=== PATIENT | male | born 1985 | race Caucasian/White ===

== ENCOUNTER 2019-10-13 18:17 | Emergency (ER) | payer SELFPAY ==
[2019-10-13 18:46] VITALS: BP 186/106; PULSE 82; RESP 14; TEMP 36.6; O2SAT 98; BMI 27.2
--- NOTE | 2019-10-13 18:49 | ECG_ITS ---
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 Measurements Intervals [place] Rate: 74 P: 54 DE: 142 QRS: 32 QRSD: 94 T: 25 QT: 363 QTc: 404 Interpretive Statements SINUS RHYTHM No previous ECG available for comparison Electronically Signed On 10-15-2019 20:44:19 CDT by Hyacinth Wren M.D. [id number]
--- NOTE | 2019-10-13 18:57 | W.ED.GENADLT ---
HPI - General Adult General: Chief complaint: General Medical Stated complaint: high bp Time Seen by Provider: 10/13/19 18:49 Source: patient Mode of arrival: ambulatory Limitations: no limitations History of Present Illness: HPI narrative: 34-year-old male who states he has been checking his blood pressure over the last week and it is been consistently high roughly 150s over 90s. Patient states he has had some slight numbness in his left arm. Denies any chest pain or headache. He states his other PCP is retired and he is not seen his new one in failure. He states he was concerned when his diastolic was over 100. Denies any worsening or improving factors. Associated symptoms: Deny chest pain, dyspnea, nausea, rash or vomiting Review of Systems Const: Denies: fever(s), chills, body aches or change in appetite Eyes: Denies: blurry vision or eye discomfort ENMT: Denies: throat pain or dental pain Card: Denies: chest pain Resp: Denies: dyspnea GI: Denies: abdominal pain, nausea, vomiting or diarrhea : Denies: dysuria Musc: Denies: neck pain or back pain Skin/Breast: Denies: rash Neuro: Reports: numbness in extremities Psych: Denies: depression Jorge/Lymph: Denies: easy bruising All/Imm: Denies: urticaria Physical Exam Const: COMMON NORMALS: no acute distress, patient oriented x3 and healthy appearing HENMT: COMMON NORMALS: normocephalic and atraumatic HEAD & SCALP: normocephalic and atraumatic Eye: COMMON NORMALS: Equal, round and reactive pupils present and EOMs intact bilaterally PUPIL: Yes Equal, round and reactive pupils present Neck/C-Spine: COMMON NORMALS: full ROM and supple Chest: COMMONS NORMALS: normal inspection of the chest and normal palpation of entire chest wall Resp: COMMON NORMALS: normal respiratory effort, No retractions, No use of accessory muscles and clear to auscultation bilaterally AUSCULTATION: clear to auscultation bilaterally Cardio: COMMON NORMALS: regular rate, regular rhythm and No murmurs present (Cardio) RATE: regular rate RHYTHM: regular rhythm GI: COMMON NORMALS: Normal to inspection, nondistended, normoactive bowel sounds present, Soft to palpation, non-tender and no masses PALPATION: Yes Soft to palpation Extremity: COMMON NORMALS: normal to inspection and full ROM Neuro: COMMON NORMALS: patient oriented x3, moves all extremities and no focal motor deficits Psych: COMMON NORMALS: mental status grossly normal, Normal thought process present and cooperative THOUGHT PROCESS: Normal thought process present Skin: COMMON NORMALS: no rashes or lesions noted and no wounds GENERAL SKIN EXAM: no rashes or lesions noted Course Vital Signs: Vital signs: Vital Signs Temperature 97.9 F 10/13/19 18:46 Pulse Rate 82 10/13/19 18:46 Respiratory Rate 14 10/13/19 18:46 Blood Pressure 186/106 10/13/19 18:46 Pulse Oximetry 98 10/13/19 18:46 MDM - General Adult MDM Narrative: Medical decision making narrative: Jerry presents here with high blood pressure. He is asymptomatic and EKG here is negative. Patient given HCTZ here and will start him on a prescription for that as well. He is to follow-up with his PCP in 3 to 5 days and continue to take blood pressure logs. He is return if worsening. He understands and agrees to plan. EKG Data^: EKG 1: Attestation: I personally reviewed and interpreted this EKG as follows: EKG interpretation date: 10/13/19 EKG interpretation time: 19:08 Interpretation: nsr hr [address] or t wave abnormalities qrs 94 qtc 390 Discharge Plan Discharge Patient Disposition: Home Clinical Impression: Hypertension Qualifiers: Hypertension type: essential hypertension Qualified Code(s): I10 - Essential (primary) hypertension Condition: Stable Prescriptions: New hydrochlorothiazide 25 mg tablet 25 mg PO BID Qty: 60 RF: 0 Discharge Orders: Discharge Order (Routine); Ordered 10/13/19 Ordered By: Halina Perez Referrals: Pb Ortega FNP-C [Primary Care Provider] - Discharge Diet: Advance as tolerated Discharge Activity: Resume usual activity Patient Instructions: Hypertension (ED) Coding Level of Care Code ED Venetian Blind Washer for Chg Fwd Exam Comprehensive
[2019-10-13] MEDS: hydroCHLOROthiazide 25 mg Tablet PO (19:29)
[2019-10-13 19:37] VITALS: BP 155/95; PULSE 74; RESP 16; TEMP 37.1; O2SAT 99
== END 2019-10-13 19:38 | disposition home or self-care (01) ==
PROVIDERS: Emergency Provider Emergency Medicine; PCP Nurse Practitioner
DX: I10 Essential (primary) hypertension (principal)
CPT/HCPCS: 12345; 93005; 99281; 99283

== ENCOUNTER → 2019-11-16 16:39 | Outpatient (BNVA) | payer SELFPAY | PROVIDERS: Visit Provider Nurse Practitioner Family | DX: R07.9 Chest pain, unspecified (principal); R20.0 Anesthesia of skin; I10 Essential (primary) hypertension | CPT/HCPCS: 80053; 80061; 82607; 83735; 84443; 85025 ==

== ENCOUNTER 2019-12-09 12:45 | Outpatient (CLI) | payer SELFPAY ==
[2019-12-01 12:04] VITALS: BMI 27.2
--- NOTE | 2019-12-01 12:17 | PC.NURSE ---
pt arrived for test. when asked about his bp meds he stated he had taken them this morning. he stated he wasn't given instruction to stop them for 48 hrs. nurse gave him a new instruction page and extension to reschedule.
--- NOTE | 2019-12-09 13:03 | ECG_ITS ---
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 Interpretive Statements NAME OF STUDY: TREADMILL STRESS TEST INDICATION: Chest Pain PROCEDURE: At the baseline, the patient's blood pressure was 123/79 with a heart rate of 90. The baseline electrocardiogram showed normal sinus rhythm with normal ST-Ts.. The patient exercised for 12 minutes and 44 seconds on a standard Bradley protocol. Patient attained a maximum heart rate of 169 beats per minute(91% of the maximum predicted heart rate) with a blood pressure at the peak exercise of 187/96 mm Hg. The EKG at the peak exercise revealed no significant ST-T changes. Patient did not have any chest pain or any significant cardiac arrhythmias with the exercise During the recovery phase, there were no new changes. Blood pressure at the end of the recovery phase was 110/83 mm Hg with a heart rate of 102 per minute. CONCLUSION: 1. Normal EKG response to treadmill exercise 2. No exercise-induced chest pain or cardiac arrhythmia 3. Good exercise tolerance, attained a maximum of 13.5 METs Electronically Signed On 12-10-2019 20:58:57 CDT by Angela Cuellar M.D. [id number]
[2019-12-09 13:05] VITALS: BMI 27.2
[2019-12-09 15:44] VITALS: BP 110/83; PULSE 102
== END 2019-12-09 12:46 | disposition home or self-care (01) ==
LOC: CDL 13:02
PROVIDERS: PCP Nurse Practitioner Family; Visit Provider Nurse Practitioner Family
DX: R07.9 Chest pain, unspecified (principal)
CPT/HCPCS: 93017

== ENCOUNTER → 2020-03-02 16:14 | Outpatient (BNVA) | payer SELFPAY | PROVIDERS: PCP Nurse Practitioner Family; Visit Provider Nurse Practitioner Family | DX: I10 Essential (primary) hypertension (principal) | CPT/HCPCS: 80053; 80061; 82607; 85025 ==

== ENCOUNTER 2021-01-14 12:58 | Emergency (ER) | payer SELFPAY ==
[2021-01-14 13:56] VITALS: BP 174/92; PULSE 80; RESP 16; TEMP 36.7; O2SAT 98; BMI 27.1
--- NOTE | 2021-01-14 14:04 | W.ED.WOUNDLC ---
HPI - Wound/Laceration General: Chief Complaint: Wound/Laceration Stated Complaint: FINGER LAC Time Seen by Provider: 01/14/21 14:04 Source: patient Mode of arrival: ambulatory Limitations: no limitations History of Present Illness: HPI narrative: 35-year-old male presents to the ER today for a right index finger laceration. Patient reports he was using a billet grinder at home and got his finger stuck in the billet grinder belt. Patient reports he immediately noticed it had removed his fingernail and the tip of his finger so he placed pressure directly on finger and came to the ER. Patient reports pain in the distal tip along with numbness and tingling. Bleeding is controlled at this time. Patient reports last tetanus shot is unknown. Patient reports he is able to bend the finger but there is pain. Onset (ago): minute(s) Extremity Location: Right: hand (Right index finger distal tip) Place: home Patient tetanus UTD: No Context: accidental Associated symptoms: Reports numbness and pain; Denies chills, fever(s), nausea or vomiting Review of Systems General: Reports: 10 or more systems reviewed and unremarkable except in HPI and below Const: Denies: fever(s), chills or body aches ENMT: Denies: throat pain, nasal discharge or nasal congestion Card: Denies: chest pain or palpitations Resp: Denies: dyspnea, productive cough or wheezing GI: Denies: abdominal pain, nausea, vomiting, diarrhea or constipation Musc: Reports: extremity pain; Denies: neck pain, back pain or extremity swelling Skin/Breast: Reports: other (Avulsion laceration to the right index finger); Denies: rash Neuro: Denies: headache(s) Psych: Denies: anxiety or depression PFSH ED PFSH: Medical History HTN (hypertension) Surgical History No pertinent past surgical history Family History Father Hypertension Social History Smoking and tobacco status: current every day smoker cigarettes Packs smoked per day: 0.5 Years cigarettes smoked: 5 Second hand smoke exposure: Yes Alcohol intake: never Caregiver/support person: Yes Lives independently: Yes Household members: significant other Marital status: Single service: No Current occupational status: employed Current occupation: [employer] History of recent travel: No Current gender identity: Male Physical Exam Const: COMMON NORMALS: no acute distress, average body habitus and patient oriented x3 GENERAL APPEARANCE: cooperative and comfortable HENMT: COMMON NORMALS: normocephalic, external ears normal and Normal external nose present HEAD & SCALP: normocephalic NOSE: Normal external nose present EXTERNAL EAR: Yes external ears normal Neck/C-Spine: COMMON NORMALS: full ROM Resp: COMMON NORMALS: normal respiratory effort EFFORT & INSPECTION: Yes able to speak in complete sentences Cardio: COMMON NORMALS: regular rate and regular rhythm RATE: regular rate RHYTHM: regular rhythm Extremity: GENERAL: Yes normal exam except as noted RIGHT UPPER EXTREMITY: Yes hand & digits (Right index finger avulsion laceration, nail completely gone.) OTHER: Patient has an avulsion laceration to the distal tip of the right index finger. The nail has been completely removed from the tip of the finger. All skin has also been removed on the dorsal aspect of the finger. There is no remaining tissue to close at this time. Bleeding is all controlled currently. Neuro: COMMON NORMALS: patient oriented x3 and moves all extremities Psych: COMMON NORMALS: mental status grossly normal, Normal thought process present, cooperative, normal affect and speech normal SPEECH: Yes normal speech THOUGHT PROCESS: Normal thought process present Skin: OTHER: See extremity for description of laceration. Patient's pulses are intact, there is decreased sensation to the tip of the right index finger Course ED course: Patient presents to the ER today with a right index finger laceration. Patient took off the tip of the right index finger involving the nail with a billet grinder belt at home. Will get x-ray to determine if there is a fracture. We will also update tetanus status at this time and wrap laceration as there is nothing to close today. Vital Signs: Vital signs: Vital Signs Temperature 98.0 F 01/14/21 13:56 Pulse Rate 80 01/14/21 13:56 Respiratory Rate 16 01/14/21 13:56 Blood Pressure 174/92 01/14/21 13:56 Pulse Oximetry 98 01/14/21 13:56 MDM - Wound/Laceration MDM Narrative: Medical decision making narrative: 35-year-old male presents to the ER today for right index finger laceration that occurred while using a billet grinder at home. Patient has no remaining tissue to close as it took off the skin and underlying tissue of the distal tip of the right index finger. Patient's nail is completely gone at this time. Bleeding is well controlled. X-ray does indicate a mild small fracture of the distal tip of the phalanx of the right index finger. We will go ahead and treat with Augmentin given this is an open fracture. We will also update tetanus status. Wound was wrapped with Vaseline gauze and a nonstick dressing and a pressure dressing was applied. Wound care was thoroughly discussed with patient. He will follow-up with PCP in 2 to 3 days for evaluation and possible wound care referral if needed. Alternate Tylenol and Motrin for pain. Return to the ER with any new or worsening symptoms. Patient verbalized understanding and is in agreement with this treatment plan. Imaging Data^: Xray Ortho: Radiologist's impression: [address] [address] XRay Report Signed Patient: Jerry Salazar Unit #: [id number] : 1985 Age/Sex: 35 / M ADM Date: 01/14/21 Loc: ER Room/Bed: Attending Dr: Ordering Provider/Ordering MD: Giulia Castano Date of Service: 01/14/21 Procedure(s): XR finger RT min 2V [id number] Accession Number(s): [id number] Report Number: [id number] PROCEDURE INFORMATION: Exam: XR Right Finger(s) Exam date and time: 01/14/2021 2:06 PM Age: 35 years old Clinical indication: Injury or trauma; Other: Using a grinding tool; Bleeding/hemorrhage; Right index finger; Additional info: Right ring finger injury TECHNIQUE: Imaging protocol: XR Right fingers. Views: Minimum 2 views. Total images: 3 COMPARISON: No relevant prior studies available. FINDINGS: Bones/joints: Partial amputation and small avulsion fracture tuft terminal phalanx 2nd digit right hand. Potential open fracture. Soft tissues: Nailbed injury. No visible radiopaque foreign body or soft tissue emphysema. XR/XR finger RT min 2V [id number] IMPRESSION: 1. Partial amputation and small avulsion fracture tuft terminal phalanx 2nd digit right hand. Potential open fracture. 2. Nailbed injury. Radiation Dose CTDIVOL = (mGy): DLP = (mGy-cm) Dictated By: Ortega Sparrow Signed By: Ortega Sparrow Signed Date/Time: 01/14/21 1525 DD/ 1406 Discharge Plan Discharge Patient Disposition: Home Clinical Impression: Laceration of right index finger with damage to nail Qualifiers: Encounter type: initial encounter Foreign body presence: without foreign body Qualified Code(s): S61.310A - Laceration without foreign body of right index finger with damage to nail, initial encounter Open fracture of distal phalanx of right index finger Qualifiers: Encounter type: initial encounter Fracture alignment: nondisplaced Qualified Code(s): S62.660B - Nondisplaced fracture of distal phalanx of right index finger, initial encounter for open fracture Condition: Stable Prescriptions: New Augmentin 875-125 mg tablet 1 tab PO BID 10 Days Qty: 20 RF: 0 No Action hydrochlorothiazide 25 mg tablet 25 mg PO BID Qty: 180 RF: 3 lisinopril 5 mg tablet 5 mg PO DAILY Qty: 90 RF: 3 atorvastatin 40 mg tablet 40 mg PO DAILY Qty: 90 RF: 3 Discharge Orders: Discharge ED (Routine); Ordered 01/14/21 Ordered By: Giulia Castano Referrals: Dee Collins FNP [Primary Care Provider] - Discharge Diet: Usual diet Discharge Activity: Resume usual activity Patient Instructions: Acute Wounds (ED), Opioid Safety Activity Restrictions/Additional Instructions: Take Augmentin as prescribed. Leave current dressing on for 48 hours before removing. Clean wound once daily with warm soapy water and apply nonstick dressing. Apply ice to reduce swelling. Alternate Tylenol and Motrin for pain. Follow-up with PCP in 3 days. Return to the ER with any new or worsening symptoms. Coding Level of Care Code ED Environmental Monitoring Specialist for Javed Fwd Exam Comprehensive
[2021-01-14] MEDS: tetanus-dipt-pertussis 0.5 mL SDV IM (15:03)
[2021-01-14 15:42] VITALS: BP 145/88; PULSE 82; RESP 16; O2SAT 98
--- NOTE | 2021-01-15 12:05 | PC.NURSE ---
Pt called reguesting pain meds along with antibiotic. Verbal order for Toradol 10 mg po TID x 4 days Stop Ibuprofen. Can continue to take Tylenol.
== END 2021-01-14 15:23 | disposition home or self-care (01) ==
PROVIDERS: Emergency Provider Physician Assistant; PCP Nurse Practitioner Family
DX: S61.310A Laceration without foreign body of right index finger with damage to nail, initial encounter (principal); S62.660B Nondisplaced fracture of distal phalanx of right index finger, initial encounter for open fracture; I10 Essential (primary) hypertension; F17.210 Nicotine dependence, cigarettes, uncomplicated; W31.89XA Contact with other specified machinery, initial encounter; Z23 Encounter for immunization
CPT/HCPCS: 73140; 90471; 90715; 99283

== ENCOUNTER 2021-01-25 14:23 | Outpatient (CLI) | payer SELFPAY | END 2021-01-25 14:24 | disposition home or self-care (01) | LOC: WOUND 14:23 | PROVIDERS: PCP Nurse Practitioner Family; Visit Provider Emergency Medicine | DX: S61.320A Laceration with foreign body of right index finger with damage to nail, initial encounter (principal); X58.XXXA Exposure to other specified factors, initial encounter; F17.210 Nicotine dependence, cigarettes, uncomplicated | CPT/HCPCS: 97597; G0463 ==

== ENCOUNTER → 2021-04-30 16:16 | Outpatient (BNVA) | payer SELFPAY | PROVIDERS: PCP Nurse Practitioner Family; Visit Provider Nurse Practitioner Family | DX: F52.4 Premature ejaculation (principal); I10 Essential (primary) hypertension | CPT/HCPCS: 80053; 80061; 82607; 83735; 84403; 84439; 84443; 85025 ==

== ENCOUNTER 2021-08-23 17:41 | Emergency (ER) | payer SELFPAY ==
[2021-08-23 17:44] VITALS: BP 157/100; PULSE 74; RESP 16; TEMP 36.5; O2SAT 99
--- NOTE | 2021-08-23 18:38 | ED_ITS ---
HPI - Headache General: Chief Complaint: Headache Stated Complaint: n/v Time Seen by Provider: 08/23/21 18:37 History of Present Illness: 36-year-old male patient comes in today for com plaints of headache and some nausea and vomiting this morning. Since this afternoon patient has been able to tolerate some oral fluids, and drinking some oral electrolytes. Patient does have a history of heat exhaustion and thinks this is similar to when he has had it before. Patient appears nontoxic. Patient appears in no pain. Associated symptoms: Reports nausea and vomiting; Deny chest pain Review of Systems General: Reports: 10 or more systems reviewed and unremarkable except in HPI and below Card: Denies: chest pain Resp: Denies: dyspnea GI: Reports: nausea and vomiting; Denies: diarrhea PFSH ED PFSH: Medical History HTN (hypertension) Surgical History No pertinent past surgical history Family History Father Hypertension Social History Smoking and tobacco status: current every day smoker cigarettes Packs smoked per day: 0.5 Years cigarettes smoked: 5 Second hand smoke exposure: Yes Alcohol intake: never Caregiver/support person: Yes Lives independently: Yes Household members: significant other Marital status: Single service: No Current occupational status: employed Current occupation: [employer] History of recent travel: No Current gender identity: Male Physical Exam Const: COMMON NORMALS: alert HENMT: HEAD & SCALP: normal to inspection MOUTH: Normal oral and palatal mucosa present Neck/C-Spine: COMMON NORMALS: full ROM Resp: COMMON NORMALS: normal respiratory effort Cardio: COMMON NORMALS: regular rate and regular rhythm RATE: regular rate RHYTHM: regular rhythm GI: COMMON NORMALS: Soft to palpation and non-tender PALPATION: Yes Soft to palpation Extremity: COMMON NORMALS: normal to inspection Neuro: SENSORIUM/ORIENTATION: Yes alert Course Vital Signs: Vital signs: Vital Signs Temperature 97.7 F 08/23/21 17:44 Pulse Rate 86 08/23/21 18:48 Respiratory Rate 16 08/23/21 17:44 Blood Pressure 144/94 08/23/21 18:48 Pulse Oximetry 100 08/23/21 18:48 MDM - Headache Medical Decision Making 36-year-old male patient comes in today for complaints of headache with some nausea and vomiting starting this morning. Patient reports late in the morning early afternoon he started using electrolyte solution propel and Gatorade along with water and started to be holding down some more fluids. Patient admits to being out in the sun for the past few days becoming overheated and sweating. Patient does have a history of heat exhaustion. On exam patient is alert oriented and acting appropriate. Vital signs are normal except for some mild elevation of blood pressure at 157/100. Oral mucosa is moist. Skin is warm and dry. Differential diagnosis includes heat exhaustion, dehydration, adverse drug effect, hypertension. Patient was treated with 1 L of IV fluids, Zofran, and 50 mg of Toradol. Laboratory values noted a unremarkable blood count, CMP did note some decrease in sodium at 124 and potassium at 3.2. Creatinine was 0.7. Patient appears to be dehydrated with some mild hyponatremia. After treatment with fluids patient did feel better. Reviewed exam with patient with recommendations for continued electrolyte solution and fluids. Patient was put off work until Friday so he can replace fluids and return to normal condition. Patient stated understanding agreed to plan. Lab Data : 08/23/21 18:57 08/23/21 18:57 Laboratory Results WBC 10.5 10^3/uL (4.0-10.0) H 08/23/21 18:57 RBC 5.68 10^6/uL (4.1-5.3) H 08/23/21 18:57 Hgb 16.1 g/dL (11.7-16.6) 08/23/21 18:57 Hct 46.4 % (42.0-52.0) 08/23/21 18:57 MCV 81.7 fl (80-94) 08/23/21 18:57 MCH 28.3 pg (28.0-34.0) 08/23/21 18:57 MCHC 34.7 g/dL (30.0-36.0) 08/23/21 18:57 RDW 11.9 % (12.1-15.1) L 08/23/21 18:57 Plt Count 273 10^3/cmm (130-400) 08/23/21 18:57 MPV 9.4 fL (7.4-10.4) 08/23/21 18:57 Neut % (Auto) 70.5 % 08/23/21 18:57 Lymph % (Auto) 22.3 % 08/23/21 18:57 [place] % (Auto) 5.2 % 08/23/21 18:57 Eos % (Auto) 1.1 % 08/23/21 18:57 Baso % (Auto) 0.5 % 08/23/21 18:57 Neut # (Auto) 7.40 10^3/uL (1.8-7.7) 08/23/21 18:57 Lymph # (Auto) 2.3 10^3/uL (0.8-4.8) 08/23/21 18:57 [place] # (Auto) 0.5 10^3/uL (0.2-0.9) 08/23/21 18:57 Eos # (Auto) 0.1 10^3/uL (0.0-0.8) 08/23/21 18:57 Baso # (Auto) 0.1 10^3/uL (0.0-0.1) 08/23/21 18:57 Nucleated RBC % (auto) 0 % 08/23/21 18:57 Nucleated RBCs # 0.0 /100WBC 08/23/21 18:57 Sodium 124 mmol/L (136-145) L 08/23/21 18:57 Potassium 3.2 mmol/L (3.5-5.1) L 08/23/21 18:57 Chloride 82 mmol/L (98-107) L 08/23/21 18:57 Carbon Dioxide 28 mmol/L (22-29) 08/23/21 18:57 Anion Gap 17.2 (5-19) 08/23/21 18:57 BUN 7 mg/dL (6-20) 08/23/21 18:57 Creatinine 0.7 mg/dL (0.7-1.2) 08/23/21 18:57 GFR Calculation 126.9 mL/min (90-130) 08/23/21 18:57 Glucose 101 mg/dL (65-115) 08/23/21 18:57 Calculated Osmolality 256 mOsm/kg (285-295) L 08/23/21 18:57 Calcium 9.6 mg/dL (8.5-10.5) 08/23/21 18:57 Total Bilirubin 0.4 mg/dL (0.15-1.2) 08/23/21 18:57 AST 19 U/L (0-40) 08/23/21 18:57 ALT 21 U/L (0-41) 08/23/21 18:57 Alkaline Phosphatase 86 IU/L (40-130) 08/23/21 18:57 Creatine Kinase 156 U/L (39-308) 08/23/21 18:57 Total Protein 7.4 g/dL (6.6-8.7) 08/23/21 18:57 Albumin 4.8 g/dL (3.5-5.2) 08/23/21 18:57 Globulin 2.6 g/dL (1.3-4.6) 08/23/21 18:57 Lipase 13 U/L (13-60) 08/23/21 18:57 Urine Color Yellow (Yellow) 08/23/21 18:46 Urine Appearance Clear (CLEAR) 08/23/21 18:46 Urine pH 7 (5-7) 08/23/21 18:46 Ur Specific [place] 1.005 (1.005-1.030) 08/23/21 18:46 Urine Protein Neg (Negative) 08/23/21 18:46 Urine Glucose (UA) Norm (Normal) 08/23/21 18:46 Urine Ketones Negative (Negative) 08/23/21 18:46 Urine Blood Neg (Negative) 08/23/21 18:46 Urine Nitrate Negative (Negative) 08/23/21 18:46 Urine Bilirubin Neg (Negative) 08/23/21 18:46 Urine Urobilinogen Norm mg/dL (Negative) 08/23/21 18:46 Ur Leukocyte Esterase Negative (Negative) 08/23/21 18:46 Discharge Plan Discharge Patient Disposition: Home Clinical Impression: Dehydration with hyponatremia Condition: Stable Prescriptions: No Action hydrochlorothiazide 25 mg tablet See Rx Instructions PO BID Qty: 135 3RF Rx Instructions: 1 tab AM, 1/2 tab PM PO twice a day; lisinopril 10 mg tablet 10 mg PO DAILY Qty: 90 3RF atorvastatin 40 mg tablet 40 mg PO DAILY Qty: 90 3RF sildenafil [Viagra] 50 mg tablet 50 mg PO DAILY PRN (Reason: sexual activity) Qty: 10 2RF Rx Instructions: administer 30 minutes to 4 hours before activity Discharge Orders: Discharge ED (Routine); Ordered 08/23/21 Ordered By: Matti Mckeon Referrals: Dee Collins FNP [Primary Care Provider] - Discharge Diet: Usual diet Discharge Activity: Increase activity as tolerated Patient Instructions: Dehydration (ED) Activity Restrictions/Additional Instructions: When sweating a lot in the heat it is very important to replace your electrolytes with solution such as Gatorade, or Pedialyte. Some medications such as diuretics like hydrochlorothiazide may increase your likelihood for dehy dration. I would recommend diluting Gatorade in half with water and drinking that to help prevent dehydration and the loss of electrolytes. Follow-up with primary care in 1 week for recheck of labs. Return to ER for worsening symptoms or new concerns. Stand Alone Forms: Work/School Release Coding Level of Care Code ED Scheduling Manager for Javed Fwd Exam Detailed
[2021-08-23 18:48] VITALS: BP 144/94; PULSE 86; O2SAT 100
[2021-08-23 18:55] LABS: Add Urine Microscopic? NO; Charge for UA Resulting for Rev
[2021-08-23 18:57] LABS: Bilirubin Urine Neg (Negative); Blood Urine Neg (Negative); Glucose Urine UA Norm (Normal); Ketones Urine Negative (Negative); Leukocyte Esterase Urine Negative (Negative); Nitrate Urine Negative (Negative); Protein Urine Neg (Negative); Specific Gravity, Urine 1.005 (1.005-1.030); Urine Appearance Clear (CLEAR); Urine Color Yellow (Yellow); Urobilinogen Urine Norm (Negative); pH Urine 7 (5-7)
[2021-08-23 19:02] LABS: Basophils # 0.1 10^3/uL (0.0-0.1); Basophils % 0.5 %; Eosinophils # 0.1 10^3/uL (0.0-0.8); Eosinophils % 1.1 %; Hematocrit 46.4 % (42.0-52.0); Hemoglobin 16.1 g/dL (11.7-16.6); Lymphocytes # 2.3 10^3/uL (0.8-4.8); Lymphocytes % 22.3 %; Mean Corpuscular HGB Conc 34.7 g/dL (30.0-36.0); Mean Corpuscular Hemoglobin 28.3 pg (28.0-34.0); Mean Corpuscular Volume 81.7 fl (80-94); Mean Platelet Volume 9.4 fL (7.4-10.4); Monocytes # 0.5 10^3/uL (0.2-0.9); Monocytes % 5.2 %; Neutrophils % 70.5 %; Nucleated Red Blood Cells % 0 %; Platelet Count 273 10^3/cmm (130-400); Red Blood Count 5.68 10^6/uL (4.1-5.3); Red Cell Distribution Width 11.9 % (12.1-15.1); White Blood Count 10.5 10^3/uL (4.0-10.0)
[2021-08-23] MEDS: ketorolac 30 mg/mL INJ 15 MG IVP (19:04)
[2021-08-23] MEDS: sodium chloride 0.9% 1,000 ML 999 ML IV (19:04)
[2021-08-23] MEDS: ondansetron 2 mg/ML SDV 2 mL 4 MG IVP (19:04)
[2021-08-23 19:19] LABS: Alanine Aminotransferase 21 U/L (0-41); Albumin Level 4.8 g/dL (3.5-5.2); Alkaline Phosphatase 86 IU/L (40-130); Anion Gap 17.2 (5-19); Aspartate Amino Transferase 19 U/L (0-40); Blood Urea Nitrogen 7 mg/dL (6-20); Calcium 9.6 mg/dL (8.5-10.5); Carbon Dioxide 28 mmol/L (22-29); Creatine Phosphokinase 156 U/L (39-308); Globulin 2.6 g/dL (1.3-4.6); Glomerular Filtration Rate 126.9 mL/min (90-130); Glucose 101 mg/dL (65-115); Lipase 13 U/L (13-60); Total Bilirubin 0.4 mg/dL (0.15-1.2); Total Protein 7.4 g/dL (6.6-8.7)
[2021-08-23 19:22] LABS: Chloride 82 mmol/L (98-107); Osmolality Calculated 256 mOsm/kg (285-295); Potassium 3.2 mmol/L (3.5-5.1); Sodium 124 mmol/L (136-145)
[2021-08-23 19:55] VITALS: BP 118/84; PULSE 72; RESP 18; O2SAT 99
== END 2021-08-23 19:45 | disposition home or self-care (01) ==
PROVIDERS: Emergency Provider Nurse Practitioner Family; PCP Nurse Practitioner Family
DX: E86.0 Dehydration (principal); E87.1 Hypo-osmolality and hyponatremia; I10 Essential (primary) hypertension
CPT/HCPCS: 80053; 81003; 82550; 83690; 85025; 96374; 96375; 99284; J1885; J2405; J7030

== ENCOUNTER → 2021-12-20 12:30 | Outpatient (BNVA) | payer BC, SELFPAY | PROVIDERS: PCP Nurse Practitioner Family; Visit Provider Nurse Practitioner Family | DX: I10 Essential (primary) hypertension (principal); M54.50 Low back pain, unspecified; G89.29 Other chronic pain; E78.5 Hyperlipidemia, unspecified; F52.4 Premature ejaculation; M54.6 Pain in thoracic spine; M54.2 Cervicalgia | CPT/HCPCS: 80053; 80061; 84443; 85025 ==

== ENCOUNTER → 2022-05-29 16:30 | Outpatient (BNVA) | payer BC, SELFPAY | PROVIDERS: PCP Nurse Practitioner Family; Visit Provider Nurse Practitioner Family | DX: I10 Essential (primary) hypertension (principal) | CPT/HCPCS: 80053; 80061; 82607; 83721; 84443; 85025 ==

== ENCOUNTER 2022-06-06 14:51 | Outpatient (CLI) | payer BC, SELFPAY ==
--- NOTE | 2022-06-06 15:04 | XRR_ITS ---
PROCEDURE INFORMATION: Exam: XR Cervical Spine Exam date and time: 06/06/2022 3:10 PM Age: 37 years old Clinical indication: Pain; Cervicalgia; Additional info: M54.2 - cervicalgia TECHNIQUE: Imaging protocol: Radiologic exam of the cervical spine. Views: 2 or 3 views. COMPARISON: No relevant prior studies available. FINDINGS: Bones/joints: Normal alignment. No acute fracture or traumatic spondyloliethesis. Mild degenerative disc changes C3-C4 through C6-C7 with mild posterior degenerative disc space narrowing and end plate osteophytic lipping. Mild degenerative facet arthrosis C7-T1. Osseous structures otherwise unremarkable. Soft tissues: Unremarkable. XR/XR cervical spine 3V* [id number] IMPRESSION: No acute findings.
--- NOTE | 2022-06-06 15:04 | XRR_ITS ---
PROCEDURE INFORMATION: Exam: XR Thoracic Spine Exam date and time: 06/06/2022 3:10 PM Age: 37 years old Clinical indication: Pain in thoracic spine; Additional info: M54.6 - pain in thoracic spine TECHNIQUE: Imaging protocol: Radiologic exam of the thoracic spine. Views: 3 views. COMPARISON: No relevant prior studies available. FINDINGS: Bones/joints: There is slight kyphoscoliosis convex to the patient's right. Mild degenerative disc changes are present within the mid-lower thoracic spine with mild disc space narrowing. There are no fractures or spondylolisthesis. Pedicles are intact. Soft tissues: Paraspinal soft tissues are unremarkable. XR/XR thoracic spine 3V* [id number] IMPRESSION: No acute bony abnormalities.
--- NOTE | 2022-06-06 15:04 | XRR_ITS ---
PROCEDURE INFORMATION: Exam: XR Lumbosacral Spine Exam date and time: 06/06/2022 3:10 PM Age: 37 years old Clinical indication: Low back pain; Additional info: M54.50 - low back pain, unspecified TECHNIQUE: Imaging protocol: Radiologic exam of the lumbosacral spine. Views: 2 or 3 views. COMPARISON: No relevant prior studies available. FINDINGS: Bones/joints: A is interest mild degenerative disc changes are present L1-L2 and L5-S1 with some disc space narrowing and endplate sclerosis. Remaining disc heights are maintained. No fracture, spondylolysis or spondylolisthesis. Pedicles are intact. Soft tissues: Unremarkable. XR/XR lumbar spine 2-3V* [id number] IMPRESSION: Mild degenerative changes L1-L2 and L5-S1. No acute abnormalities.
== END 2022-06-06 14:52 | disposition home or self-care (01) ==
LOC: RAD 15:00
PROVIDERS: PCP Nurse Practitioner Family; Visit Provider Nurse Practitioner Family
DX: G89.29 Other chronic pain (principal); M54.50 Low back pain, unspecified; M54.6 Pain in thoracic spine; M54.2 Cervicalgia
CPT/HCPCS: 72040; 72072; 72100

== ENCOUNTER 2022-06-22 10:26 | Outpatient (CLI) | payer BC, SELFPAY ==
[2022-06-22] MEDS: iohexol 350 mg/mL 500 mL Btl (per mL) IV (11:41)
[2022-06-22] MEDS: iohexol 350 mg/mL 500 mL Btl (per mL) PO (11:41)
--- NOTE | 2022-06-22 12:00 | CT_ITS ---
WS: [id number] CT ABDOMEN AND PELVIS WITH CONTRAST HISTORY: R10.31 - Right lower quadrant pain TECHNIQUE: Imaging performed of the abdomen and pelvis with IV contrast. Single phase imaging of the abdomen. Coronal and sagittal reformats are submitted. All CT scans at [facility] use at [address] one of these dose optimization techniques: automated exposure control; mA and/or kV adjustment per patient size (includes targeted exams where dose is matched to clinical indication); or iterative re construction. IV CONTRAST: Omnipaque 350; 100 mL IV. Oral contrast: Yes. DLP: 457.23 mGy.cm COMPARISON: None available. Lower thorax: Lung bases are clear. Heart is normal size. Small hiatal hernia. Liver/biliary system: Normal size with no intrahepatic dilatation. Gallbladder: Normal. No gallstones or wall thickening. No pericholecystic fluid. Pancreas: Normal size pancreas and pancreatic duct. No adjacent inflammation. Spleen: Normal size spleen. No mass or infarct. Adrenal glands: Normal. Right kidney: Normal. Left kidney: Normal. Aorta: Normal. Lymphadenopathy: None. Free fluid: None. GI tract: Stomach is well-distended with contrast. There is mild wall thickening of the stomach. No s mall bowel obstruction. There is additional very mild wall thickening involving portions of colon, gr eatest involving the descending and sigmoid colon and the cecum. There are a few scattered sigmoid di verticula. The appendix is normal. Abdominal wall: Fat containing umbilical hernia. Pelvis: No free fluid or adenopathy within the pelvis. Minimally distended urinary bladder. There is mild diffuse wall thickening which is probably related to only partial distention. Bones: Unremarkable. CT/CT abdomen pelvis w con* [id number] IMPRESSION: 1. No adenopathy or ascites. 2. Very mild wall thickening of the stomach and distal colon. Consider gastrit is and mild colitis. The distal colonic findings may be in part be related to o nly partial distention with oral contrast. Mild changes of inflammatory bowel d isease are also possibility. 3. No appendicitis. 4. Small hiatal hernia. 5. A few scattered distal colonic diverticula with no acute diverticulitis.
== END 2022-06-22 10:27 | disposition home or self-care (01) ==
PROVIDERS: PCP Nurse Practitioner Family; Visit Provider Nurse Practitioner Family
DX: R10.31 Right lower quadrant pain (principal); K44.9 Diaphragmatic hernia without obstruction or gangrene; K57.30 Diverticulosis of large intestine without perforation or abscess without bleeding
CPT/HCPCS: 74177; Q9967

== ENCOUNTER → 2022-11-27 08:46 | Outpatient (BNVA) | payer BC, SELFPAY | PROVIDERS: PCP Nurse Practitioner Family; Visit Provider Nurse Practitioner Family | DX: I10 Essential (primary) hypertension (principal); N52.9 Male erectile dysfunction, unspecified | CPT/HCPCS: 80053; 80061; 84443; 85025 ==

== ENCOUNTER → 2023-04-10 12:01 | Outpatient (BNVA) | payer BC, SELFPAY | PROVIDERS: PCP Nurse Practitioner Family; Visit Provider Nurse Practitioner Family | DX: I10 Essential (primary) hypertension (principal) | CPT/HCPCS: 80053; 80061; 84443; 85025 ==

== ENCOUNTER 2023-04-30 16:50 | Outpatient (CLI) | payer BC, SELFPAY ==
--- NOTE | 2023-04-30 16:58 | XRR_ITS ---
PROCEDURE INFORMATION: Exam: XR Thoracic Spine Exam date and time: 04/30/2023 5:02 PM Age: 37 years old Clinical indication: Pain in thoracic spine; Additional info: M54.50 - low back pain, unspecified TECHNIQUE: Imaging protocol: Radiologic exam of the thoracic spine. Views: 3 views. COMPARISON: CR XR thoracic spine 3V* [id number] 06/06/2022 3:10 PM FINDINGS: Bones/joints: Thoracic vertebral body heights appear maintained as do disc spaces. AP view demonstrates slight thoracic dextroscoliosis. Lateral view demonstrates slight thoracic kyphosis. No fracture or compression deformity. No acute osseous abnormality. No significant change with prior exam. Soft tissues: No significant focal soft tissue abnormality. XR/XR thoracic spine 3V* [id number] IMPRESSION: Slight kyphoscoliosis. No acute findings.
--- NOTE | 2023-04-30 16:58 | XRR_ITS ---
PROCEDURE INFORMATION: Exam: XR Cervical Spine Exam date and time: 04/30/2023 5:02 PM Age: 37 years old Clinical indication: Pain; Cervicalgia; Additional info: M54.2 - cervicalgia TECHNIQUE: Imaging protocol: Radiologic exam of the cervical spine. Views: 2 or 3 views. COMPARISON: CR XR cervical spine 3V* [id number] 06/06/2022 3:10 PM FINDINGS: Bones/joints: Cervical vertebral body heights appear maintained, as does alignment. Slight disc space narrowing C5-C6 level. No fracture or compression deformity. No acute osseous abnormality. No significant change with prior exam. Soft tissues: No significant soft tissue abnormality. XR/XR cervical spine 3V* [id number] IMPRESSION: Mild spondylotic change, without acute findings.
--- NOTE | 2023-04-30 16:58 | XRR_ITS ---
PROCEDURE INFORMATION: Exam: XR Lumbosacral Spine Exam date and time: 04/30/2023 5:02 PM Age: 37 years old Clinical indication: Low back pain; Additional info: M54.50 - low back pain, unspecified TECHNIQUE: Imaging protocol: Radiologic exam of the lumbosacral spine. Views: 2 or 3 views. COMPARISON: CR XR lumbar spine 2-3V* [id number] 06/06/2022 3:10 PM FINDINGS: Bones/joints: Lumbar vertebral body heights appear maintained, as does alignment. Mild degenerative change L1-L2, as noted with prior exam, with mild disc space narrowing, mild endplate sclerosis, and small amount of vertebral marginal spur formation. Disc spaces otherwise appear maintained. No fracture or compression deformity. No significant change with prior exam. Sacrum and sacroiliac joints appear unremarkable. Soft tissues: No significant soft tissue abnormality. XR/XR lumbar spine 2-3V* [id number] IMPRESSION: Mild degenerative change L1-L2. No acute findings.
== END 2023-04-30 16:51 | disposition home or self-care (01) ==
LOC: RAD 16:53
PROVIDERS: PCP Nurse Practitioner Family; Visit Provider Nurse Practitioner Family
DX: M47.812 Spondylosis without myelopathy or radiculopathy, cervical region (principal); G89.29 Other chronic pain; M47.816 Spondylosis without myelopathy or radiculopathy, lumbar region; M41.9 Scoliosis, unspecified
CPT/HCPCS: 72040; 72072; 72100

== ENCOUNTER → 2023-05-06 15:28 | Outpatient (BNVA) | payer BC, SELFPAY | PROVIDERS: PCP Nurse Practitioner Family; Visit Provider Nurse Practitioner Family | DX: I10 Essential (primary) hypertension (principal) | CPT/HCPCS: 80048 ==

== ENCOUNTER → 2023-08-05 10:31 | Outpatient (BNVA) | payer BC, SELFPAY | PROVIDERS: Visit Provider Nurse Practitioner Family | DX: I10 Essential (primary) hypertension (principal); R10.31 Right lower quadrant pain; Z79.899 Other long term (current) drug therapy | CPT/HCPCS: 80053; 80061; 81003; 82607; 83721; 84443; 85025 ==

== ENCOUNTER 2023-08-07 17:00 | Outpatient (CLI) | payer BC, SELFPAY ==
--- NOTE | 2023-08-07 17:00 | CTR_ITS ---
PROCEDURE INFORMATION: Exam: CT Abdomen And Pelvis With Contrast Exam date and time: 08/07/2023 5:35 PM Age: 38 years old Clinical indication: Abdominal pain; Localized; Right lower quadrant (rlq); Prior surgery; Surgery date: 1-6 months; Surgery type: Hernia surgery 2 months ago; Patient HX: Hernia SX 2 months ago umbilical, pain in rlq into back x 2 weeks, hematuria; Additional info: R10.31 - right lower quadrant pain TECHNIQUE: Imaging protocol: Computed tomography of the abdomen and pelvis with contrast. Radiation optimization: All CT scans at this facility use at least one of these dose optimization techniques: automated exposure control; mA and/or kV adjustment per patient size (includes targeted exams where dose is matched to clinical indication); or iterative reconstruction. Contrast material: OMNI 350; Contrast volume: 100 ml; Contrast route: INTRAVENOUS (IV); COMPARISON: CT abdomen pelvis w con* [id number] 06/22/2022 11:33 AM RADIATION DOSE METRICS: Total DLP (mGy-cm): 767.69 FINDINGS: Lungs: Lung bases are clear as visualized. Heart: Base of heart is unremarkable as visualized. Liver: Normal. No mass. Gallbladder and bile ducts: Normal. No calcified stones. No ductal dilation. Pancreas: Normal. No ductal dilation. Spleen: Normal. No splenomegaly. Adrenal glands: Normal. No mass. Kidneys and ureters: Normal. No hydronephrosis. Stomach and bowel: There is perhaps mild inflammatory change of the proximal ascending/distal cecal colon. Multiple diverticula are noted within this region. Fatty metaplasia of this region is noted. Transient small bowel small bowel intussusception is noted in the left lower quadrant. Appendix: No evidence of appendicitis. Intraperitoneal space: Unremarkable. No free air. No significant fluid collection. Vasculature: Unremarkable. No abdominal aortic aneurysm. Lymph nodes: Unremarkable. No enlarged lymph nodes. Urinary bladder: Unremarkable as visualized. Reproductive: Unremarkable as visualized. Bones/joints: Unremarkable. No acute fracture. Soft tissues: Unremarkable. CT/CT abdomen pelvis w con* [id number] IMPRESSION: 1. Suggestion of mild diverticulitis of the proximal ascending colon. Underlying neoplasm is not excluded. Recommend gastrointestinal consultation. 2. Fatty metaplasia of the cecum and proximal ascending colon, can be seen in chronic inflammatory states. Correlate with underlying clinical pathology.
[2023-08-07] MEDS: iohexol 350 mg/mL 500 mL Btl (per mL) PO (17:31)
[2023-08-07] MEDS: iohexol 350 mg/mL 500 mL Btl (per mL) IV (17:40)
== END 2023-08-07 17:01 | disposition home or self-care (01) ==
PROVIDERS: PCP Nurse Practitioner Family; Visit Provider Nurse Practitioner Family
DX: K57.90 Diverticulosis of intestine, part unspecified, without perforation or abscess without bleeding (principal); R10.31 Right lower quadrant pain; K76.0 Fatty (change of) liver, not elsewhere classified
CPT/HCPCS: 74177; Q9967

== ENCOUNTER → 2023-12-31 12:54 | Outpatient (BNVA) | payer BC, SELFPAY | PROVIDERS: PCP Nurse Practitioner Family; Visit Provider Nurse Practitioner Family | DX: I10 Essential (primary) hypertension (principal) | CPT/HCPCS: 80053; 80061; 85025 ==

== ENCOUNTER 2024-01-20 06:12 | Day surgery (SDC) | payer BC, SELFPAY ==
--- OUTSIDE RECORDS SUMMARY | 2024-01-08 09:08 | XMS_ITS | Patient Health Record ---
Author Name Unknown Organization [facility] Address [address] [place] [address] Care Team Providers Care Industrial Relations Counselor Name Role Phone Duyen Burnett MD Primary Care Provider Bebo Sands Unavailable [phone] Dee Collins APRN Unavailable Unavailable Allergies No Known Allergies Reason For Referral No Information Medications Medication SIG (Take, Route, Frequency, Duration) Notes Start Date End Date Status Atorvastatin Calcium 40 MG 1 tablet Oral ly Once a day Active hydroCHLOROthiazide 25 MG 1 tablet in th e morning Orally bid Active Lisinopril 5 MG 1 tablet Orally Once a day Active Vitamin B12 Active Omeprazole 20 MG 1 capsule 30 minutes before morning meal Orally Once a day Active Social History Tobacco Use: Social History Observation Description Date Details (start date - stop date) Current Smoker NA - NA xTobacco Use/Smoking Question Answer Notes Are you a current smoker Alcohol Screen (Audit-C) Question Answer Notes Did you have a drink containing alcohol in the p ast year? Yes Points 0 Interpretation Negative Problems Problem Type SNOMED Code ICD Code Onset Dates Problem Status W/U Status Risk Notes Problem History of vasectomy (082752445) Vasectomy status (Z98.52) Active confirmed Problem [id number] Microscopic hematuria (R31.29) Active confirmed Plan Of Treatment No Information Insurance Providers Payer Name Payer Address Payer Phone Subscriber Number Group Number Insured Name Patient Relationship to Insured Coverage Start Date Coverage End Date [employer] [address] [place] [phone] [id number] Jerry Salazar Self - patient is the insured Medical (General) History Medical History History ICD Code hypertension Surgical History Surgery Date(Month/Year) vasectomy 01/2015
[2024-01-20] VITALS (10 sets, daily range): BP systolic 100–115; BP diastolic 67–89; PULSE 78–92; RESP 16–18; TEMP 36.1–36.3; O2SAT 90–97; BMI 33.0
--- NOTE | 2024-01-20 06:06 | W.PM.OPSUD ---
Surgery/Procedure H&P Update DATE OF PROCEDURE: January 20, 2024 DATE H&P PERFORMED: 01/07/24 H&P UPDATE INFORMATION: I have reviewed H&P completed within last 30 days, I have examined patient prior to procedure, No changes to prior documentation and [place] [facility] [place] indicated PLANNED PROCEDURE: Operation Date: 01/20/24 07:15 Proposed Procedures p EGD 71220, 91721, G0105, K21.9, K57.92(Not Applicable) - Miquel Molina MD s Colonoscopy(Not Applicable) - Miquel Molina MD
[2024-01-20] MEDS: sodium chloride 0.9% 500 ML 15 ML IV (06:42)
--- NOTE | 2024-01-20 06:45 | ANES.PREANE2 ---
Pre-Anesthetic Assessment Height/Weight: Height 1.78 m Weight 104.326 kg Temp Pulse Resp BP Pulse Ox O2 Del Method 97.3 F L 88 16 115/89 97 Room Air 01/20/24 06:35 01/20/24 06:35 01/20/24 06:35 01/20/24 06:35 01/20/24 06:35 01/20/24 06:35 Operation Date: 01/20/24 07:15 Proposed Procedures p EGD 93004, 74120, G0105, K21.9, K57.92(Not Applicable) - Miquel Molina MD s Colonoscopy(Not Applicable) - Miquel Molina MD Familial anesthetic complications: None Was Beta Juan Francisco taken within 24 hours: N/A Was Clonidine taken within 24 hours: N/A Last intake: Intake Last Liquid Date 01/19/24 Last Liquid Time 20:00 Last Solid Date 01/18/24 Last Solid Time 18:00 Social Alcohol (5-6 beers, been 2 weeks since he's drank) and Tobacco 1 pack(s) per day Exam alert, oriented x 3, clear to auscultation bilaterally and regular rate & rhythm Airway Submandibular: within normal limits Cervical ROM: within normal limits Mallampati: Class II Dentition: chipped and full Comments: Comments: Numerous chipped/broken teeth. Poor dentition History/ROS No significant history except as noted and No significant complaints Pulmonary Asthma and Cough CV/HEM Hypertension CONCLUSION: 1. Normal EKG response to treadmill exercise 2. No exercise-induced chest pain or cardiac arrhythmia 3. Good exercise tolerance, attained a maximum of 13.5 METs None reported Hepatic None reported GI Gastroesophageal Reflux Disease (None this morning) Umbilical hernia repair May 2023 Metabolic Hyperlipidemia and Morbid Obesity [facility] [place] Osteoarthritis/DJD Neuropsych Neuropathy Anesthetic Plan ASA status: 3 Anesthesia: Anesthesia Evaluation, General and MAC Risk of > 500 ml blood loss (7ml/kg in children): No Medications/Allergies Home Medications Medication Instructions Recorded Confirmed Last Taken Type lisinopril 20 mg tablet 20 mg PO DAILY #90 tabs 04/09/23 01/14/24 01/19/24 Rx diclofenac sodium 75 mg 75 mg PO BID PRN pain #180 tabs 08/05/23 01/14/24 01/19/24 Rx tablet,delayed release tadalafil 5 mg tablet (Cialis) 5 mg PO DAILY #90 tabs 08/05/23 01/14/24 01/19/24 Rx albuterol sulfate 90 mcg/actuation 2 puff inhalation Q6H PRN 12/29/23 01/14/24 01/19/24 Rx aerosol inhaler (Ventolin HFA) shortness of breath or wheezing #8.5 grams fenofibrate 160 mg tablet 160 mg PO DAILY #90 tabs 12/29/23 01/14/24 01/19/24 Rx hydrochlorothiazide 25 mg tablet See Rx Instructions .Route 12/29/23 01/14/24 01/19/24 Rx .COMPLEX #135 tabs atorvastatin 40 mg tablet 40 mg PO DAILY 01/14/24 01/14/24 01/19/24 History omeprazole 20 mg capsule,delayed 20 mg PO BID 01/14/24 01/14/24 01/19/24 History release sucralfate 1 gram tablet 1 g PO TID 01/14/24 01/14/24 01/19/24 History Allergies Allergy/AdvReac Type Severity Reaction Status Date / Time No Known Allergies Allergy Verified 01/14/24 08:39 Current Medications Generic Name Dose Route Start Last Admin Trade Name Freq PRN Reason Stop Dose Admin Sodium Chloride 500 mls @ 15 mls/hr 01/20/24 06:20 01/20/24 06:42 Sodium Chloride 0.9% IV 01/21/24 06:19 15 mls/hr .Q24H PRN Administration COLONOSCOPY FLUIDS PFSH Anesthesia Medical History GERD (gastroesophageal reflux disease) Erectile dysfunction Hyperlipidemia HTN (hypertension) Surgical History History of hernia surgery May 2023 History of vasectomy No pertinent past surgical history Family History Father Hypertension Social History Smoking and tobacco/nicotine status: current every day tobacco/nicotine user cigarettes Packs smoked per day: 0.5 Years cigarettes smoked: 7 Second hand smoke exposure: Yes Alcohol intake: never Substance/Drug Use: never Caregiver/support person: Yes Lives independently: Yes Household members: significant other Marital status: Single service: No Current occupational status: employed Current occupation: [employer] Current gender identity: Male Data Anesthesia Cardiac Studies: No Data to Display
--- NOTE | 2024-01-20 09:04 | SUR.PHASEII ---
Pt c/o sharp pain in left upper chest upon inspiration only. Bilateral lung simmons clear upon inspiration and expiration.
--- NOTE | 2024-01-20 09:15 | ANE.PACU2 ---
Inpatient post-anesthesia follow up: Airway intact: Yes Vital signs: Temperature 97.4 F Pulse Rate 91 Respiratory Rate 16 Blood Pressure 107/67 Pulse Oximetry 94 Oxygen Delivery Me thod Room Air Oxygen Flow Rate 4 Fraction of Inspir ed Oxygen Hydration adequate: Yes Nausea and vomiting: No Pain level: 1 Mental status: Baseline
== END 2024-01-20 09:15 | disposition home or self-care (01) ==
PROVIDERS: PCP Nurse Practitioner Family; Visit Provider Surgery
PROC: 0DJ08ZZ Inspection of Upper Intestinal Tract, Via Natural or Artificial Opening Endoscopic (ICD-10-PCS; CPT 43235; principal; 2024-01-20 07:15)
PROC: 0DJD8ZZ Inspection of Lower Intestinal Tract, Via Natural or Artificial Opening Endoscopic (ICD-10-PCS; CPT 45378; 2024-01-20 07:15)
DX: K57.92 Diverticulitis of intestine, part unspecified, without perforation or abscess without bleeding (principal); K21.9 Gastro-esophageal reflux disease without esophagitis; K29.50 Unspecified chronic gastritis without bleeding; K63.5 Polyp of colon; D12.8 Benign neoplasm of rectum; K57.30 Diverticulosis of large intestine without perforation or abscess without bleeding; K44.9 Diaphragmatic hernia without obstruction or gangrene; E78.5 Hyperlipidemia, unspecified; E66.01 Morbid (severe) obesity due to excess calories; Z68.33 Body mass index [BMI] 33.0-33.9, adult; F17.210 Nicotine dependence, cigarettes, uncomplicated
CPT/HCPCS: 43239; 45380; 45385; 88305; 88342; J2704; J7040

== ENCOUNTER → 2024-10-27 09:25 | Outpatient (BNVA) | payer BC, SELFPAY | PROVIDERS: PCP Nurse Practitioner Family; Visit Provider Nurse Practitioner Family | DX: I10 Essential (primary) hypertension (principal) | CPT/HCPCS: 80053; 80061; 84443; 85025 ==